=== PATIENT | female | born 1995 | race Caucasian/White ===

== ENCOUNTER 2018-01-06 14:22 | Emergency (ER) | payer SELFPAY ==
[~2018-01-06] VITALS: Ht 167.6 cm; Wt 75.3 kg
[2018-01-06 14:33] VITALS: Ht 167.6 cm; Wt 75.3 kg
[2018-01-06 17:23] VITALS: BP 124/75
== END 2018-01-06 17:23 | disposition home or self-care (01) ==
LOC: ED 14:22
DX: H11.002 Unspecified pterygium of left eye (principal); H10.9 Unspecified conjunctivitis; J06.9 Acute upper respiratory infection, unspecified